=== PATIENT | female | born 1975 | race Caucasian/White ===

== ENCOUNTER 2019-05-04 14:11 | Emergency (ER) | payer BC ==
[~2019-05-04] VITALS: Ht 165.1 cm; Wt 75.0 kg
[2019-05-04 14:11] VITALS: TEMP 98.1
[2019-05-04] MEDS ORDERED: ZOFRAN ODT4 MG PO (15:43)
[2019-05-04] MEDS ORDERED: NORCO 325 MG-51 TAB PO (15:43)
[2019-05-04 16:45] VITALS: BP 128/75; PULSE 82
== END 2019-05-04 16:45 | disposition home or self-care (01) ==
LOC: COL.ER 14:11
DX: S82.851A Displaced trimalleolar fracture of right lower leg, initial encounter for closed fracture (principal); Z98.890 Other specified postprocedural states; W01.0XXA Fall on same level from slipping, tripping and stumbling without subsequent striking against object, initial encounter; Y93.01 Activity, walking, marching and hiking; Y92.830 Public park as the place of occurrence of the external cause
CPT/HCPCS: J3010; J7030; Q4045